=== PATIENT | male | born 1975 | race Caucasian/White ===

== ENCOUNTER 2018-05-10 12:19 | Day surgery (SDC) | payer BC, OTHER ==
[2018-05-01 16:56] VITALS: BMI 27.3
[2018-05-10] MEDS ORDERED: MIDAZOLAM HCL 2 MG/2 ML SINGLE DOSE VIAL ONE (14:03)
[2018-05-10] MEDS ORDERED: PROPOFOL 20 ML ONE (14:08)
[2018-05-10] MEDS ORDERED: ONDANSETRON 4 MG/2 ML VIAL ONE (14:37)
[2018-05-10] MEDS ORDERED: KETOROLAC TROMETHAMINE 30 MG/1 ML VIAL ONE (14:37)
[2018-05-10] MEDS ORDERED: BUPIVACAINE HCL/PF 0.25% (2.5MG/ML) 10 ML VIAL IJ ONE (14:51)
[2018-05-10] MEDS ORDERED: oxyCODONE HCL 5 MG TABLET PO PRN (15:04)
[2018-05-10] MEDS ORDERED: ONDANSETRON 4 MG/2 ML VIAL IVPUSH PRN (15:04)
[2018-05-10] MEDS ORDERED: LACTATED RINGERS SOLUTION 1,000 ML IV SCH (15:15)
[2018-05-10 15:54] VITALS: PULSE 68; TEMP 98.5
[2018-05-10 16:21] VITALS: BP 120/63
--- NOTE | 2018-05-11 09:28 | OP ---
DATE OF OPERATION: 05/10/2018 PREOPERATIVE DIAGNOSIS: Right carpal tunnel syndrome. POSTOPERATIVE DIAGNOSIS: Right carpal tunnel syndrome. OPERATIVE PROCEDURE: Right endoscopic carpal tunnel release. ANESTHESIA: General COMPLICATIONS: None. ESTIMATED BLOOD LOSS: Minimal. INDICATION FOR PROCEDURE: The patient was a 43-year-old male with the above finding indicated for operative treatment. Risks, benefits, and alternatives were discussed with the patient at length. Proper informed consent was obtained. DESCRIPTION OF PROCEDURE: After proper identification of the patient and correct operative site, patient brought to the operating room, placed supine on the table with all prominences well padded. General anesthesia provided by the anesthesiologist adequate for procedure. Right upper extremity was prepped and draped in the usual sterile fashion. Superficial landmarks were drawn in the skin. Esmarch bandage used to exsanguinate the right upper extremity. Tourniquet was inflated to 250 mmHg. Transverse incision was made ulnar to the palmaris longus tendon in line with the proximal wrist crease. Incision was taken sharply through skin with blunt and sharp dissection through subcutaneous tissues. Antebrachial fascia was divided and the carpal canal was entered. Elevator was used to free any soft tissue off the undersurface of the canal. Hamate finder dilator was used to prepare the canal, and the microendoscopic carpal tunnel release system was inserted to the distal edge of the transverse carpal ligament which was confirmed visually as well as palpably through the skin. Excellent visualization was achieved, and at no time was any soft tissue allowed to interpose between the blade and the undersurface of the transverse carpal ligament. The blade was then deployed. The transverse carpal ligament was released, and using a direct mini open approach, the distal 4 cm of the antebrachial fascia was also divided. This provided complete release of the median nerve at the wrist. Wound was irrigated with saline and repaired 4-0 Monocryl suture. Steri-Strips and sterile dressing were applied. Patient was reversed from anesthesia and brought to the recovery room in stable condition. He tolerated the procedure well. MAULIK SCHNEIDER M.D. [id number]
== END 2018-05-10 16:20 | disposition home or self-care (01) ==
LOC: FASU 12:19
PROVIDERS: ATTEND Orthopaedic Surgery Hand Surgery
PROC: 01N54ZZ Release Median Nerve, Percutaneous Endoscopic Approach (ICD-10-PCS; principal; 2018-05-10 14:00)
DX: G56.01 Carpal tunnel syndrome, right upper limb (principal)
CPT/HCPCS: 94760